=== PATIENT | male | born 1990 | race Two or more races ===

== ENCOUNTER 2018-02-26 16:53 | Emergency (ER) | payer SELFPAY ==
[~2018-02-26] VITALS: Ht 180.3 cm; Wt 95.3 kg
[2018-02-26] MEDS ORDERED: Morphine Sulfate 4mg/ml Inj (IV/IM USE ONLY) IVP ONE (17:30)
[2018-02-26 17:50] LABS: APPEARANCE,URINE CLEAR; BILIRUBIN, URINE NEGATIVE (NEGATIVE); COLOR,URINE PALE YELLOW; GLUCOSE, URINE (UA) NEGATIVE (NEGATIVE); KETONES,URINE NEGATIVE (NEGATIVE); LEUKOCYTE ESTERASE ,URINE NEGATIVE (NEGATIVE); NITRITE,URINE NEGATIVE (NEGATIVE); PH,URINE 7 (4.5-8.0); PROTEIN,URINE NEGATIVE (NEGATIVE); UROBILINOGEN,URINE NORMAL MG/DL (0.0-1.0)
[2018-02-26 17:51] LABS: BASOPHILS % (AUTO) 1.3 % (0.0-2.0); EOSINOPHILS % (AUTO) 3.7 % (0.0-3.0); HEMATOCRIT 43.7 % (42.0-52.0); HEMOGLOBIN 15.5 G/DL (14.2-18.0); LYMPHOCYTES % (AUTO) 34.7 % (20.0-45.0); MEAN CORPUSCULAR VOLUME 87 FL (80-99); MONOCYTES % (AUTO) 7.9 % (1.0-10.0); NEUTROPHILS % (AUTO) 52.5 % (45.0-75.0); PLATELET COUNT 309 K/UL (150-450); RED BLOOD COUNT 5.04 M/UL (4.70-6.10); RED CELL DISTRIBUTION WIDTH 10.7 % (11.6-14.8); WHITE BLOOD COUNT 10.8 K/UL (4.8-10.8)
[2018-02-26 18:10] LABS: ANION GAP 8 mmol/L (5-15); BLOOD UREA NITROGEN 21 mg/dL (7-18); CARBON DIOXIDE 30 MMOL/L (21-32); CHLORIDE 102 MMOL/L (98-107); CREATININE 1.5 MG/DL (0.55-1.30); POTASSIUM 3.6 MMOL/L (3.5-5.1); SODIUM 140 MMOL/L (136-145)
[2018-02-26 18:14] LABS: ALANINE AMINOTRANSFERASE 47 U/L (12-78); ALBUMIN 4.2 G/DL (3.4-5.0); ALKALINE PHOSPHATASE 75 U/L (46-116); ASPARTATE AMINO TRANSFERASE 39 U/L (15-37); BILIRUBIN,TOTAL 0.2 MG/DL (0.2-1.0)
[2018-02-26 18:50] VITALS: BP 132/72
--- NOTE | 2018-02-26 19:29 | Emergency Room Report ---
History of Present Illness General Chief Complaint: Abdominal Pain Source: Patient (Liliam Figueroa) Present Illness HPI 27-year-old male with history of hypertension, hyperlipidemia, alcohol abuse here complaining of one month of diarrhea stating. His diarrhea is very black. patient reports he stopped drinking alcohol when his diarrhea started however he reports he has been drinking alcohol about 3-4 alcoholic beverages a day since the age of 19. He complains of one day of sharp right upper and right lower quadrant abdominal pain, denying nausea or vomiting, fever, chills, urinary symptoms. Denies recent travel or use of any new medication. He has not taken his cholesterol or blood pressure medication in a few months. Denies drug use and tobacco smoke. denies Chest pain, shortness of breath, palpitations, dizziness headache. denies blood in stool (Liliam Figueroa) Allergies: Coded Allergies: No Known Allergies (Unverified , 02/26/18) Patient History Past Medical History: see triage record Past Surgical History: none Pertinent Family History: none Social History: Reports: alcohol use - daily basis x8 years Immunizations: UTD Reviewed Nursing Documentation: PMH: Agreed; PSxH: Agreed (Liliam Figueroa) Nursing Documentation-PMH Past Medical History: No History, Except For (Liliam Figueroa) Review of Systems All Other Systems: negative except mentioned in HPI (Liliam Figueroa) Physical Exam Vital Signs Date Time Temp Pulse Resp B/P (MAP) Pulse Ox O2 Delivery O2 Flow Rate FiO2 02/26/18 17:04 98.1 72 22 132/80 98 Room Air Sp02 EP Interpretation: reviewed, normal General Appearance: alert, GCS 15, non-toxic, moderate distress Head: normocephalic, atraumatic Eyes: bilateral eye normal inspection, bilateral eye PERRL ENT: normal ENT inspection, normal pharynx Neck: normal inspection, full range of motion, supple Respiratory: normal inspection, lungs clear, no rhonchi Cardiovascular #1: normal inspection, regular rate, rhythm, no gallop, no murmur Gastrointestinal: normal bowel sounds, distended - right upper quadrant, guarding - Right upper quadrant, hepatomegaly, other - No Neely[place] sign Rectal: deferred Genitourinary: no CVA tenderness Musculoskeletal: normal inspection, back normal Neurologic: normal inspection, alert, oriented x3, responsive Psychiatric: normal inspection, judgement/insight normal, memory normal Skin: normal inspection, normal color, no rash, warm/dry Lymphatic: normal inspection, no adenopathy (Liliam Figueroa) Medical Decision Making PA Attestation all diagnoses and treatment plans were reviewed and discussed with my supervising physician Dr. Singer (Liliam Figueroa) Diagnostic Impression: Primary Impression: Mesenteric adenitis Additional Impressions: Abdominal pain Alcohol abuse ER Course 27-year-old male with history of hypertension, hyperlipidemia, alcohol abuse here complaining of one month of diarrhea stating. His diarrhea is very black. patient reports he stopped drinking alcohol when his diarrhea started however he reports he has been drinking alcohol about 3-4 alcoholic beverages a day since the age of 19. He complains of one day of sharp right upper and right lower quadrant abdominal pain, denying nausea or vomiting, fever, chills, urinary symptoms. Denies recent travel or use of any new medication. He has not taken his cholesterol or blood pressure medication in a few months. Denies drug use and tobacco smoke. denies Chest pain, shortness of breath, palpitations, dizziness headache. denies blood in stool Ddx considered but are not limited to appendicitis, cholecysitiis, pancratitis, cirrhosis Vital signs: are WNL, pt. is afebrile H&PE are most consistent with mesenteric adenitis chronic diarrhea ORDERS: CBC, CMP, lipase, UA,and drug screen, CT abdomen no contrast, morphine, Zofran, Cipro, Flagyl ED INTERVENTIONS: morphine and Zofran DISCHARGE: At this time pt. is stable for d/c to home. Will provide printed patient care instructions, and any necessary prescriptions. Care plan and follow up instructions have been discussed with the patient prior to discharge. Dr. Trent consult with the patient and reviewed results of CT abdomen per Dr. Trent recommendation patient to follow up with [employer] [facility] for further assessment of chronic diarrhea as well as stool culture. Dr. Trent appendix of 8 mm is nonsignificant of appendicitis since white blood count is within normal limits.he has discharged with Cipro and Flagyl and follow up with [facility] for GI referral AST: 39, BUN21, creatinine 1.5 (Liliam Figueroa) ER Course This patient's evaluation and treatment was discussed in detail. I agree with the treatment plan. (Danilo Singer MD) EKG Diagnostic Results Rhythm: NSR ST Segments: no acute changes (Liliam Figueroa) CT/MRI/US Diagnostic Results CT/MRI/US Diagnostic Results : Imaging Test Ordered: CT abd no cotrast Impression CT ABDOMEN & PELVIS Without Contrast: Evaluation of the colon is limited secondary to poor distention. No definite evidence for bowel related inflammatory changes. The appendix is mildly prominent measuring up to [address] evidence for periappendiceal inflammatory changes to suggest acute appendicitis. Multiple small nodes are seen in the mesentery along the right side of the abdomen. This may be related to mesenteric adenitis. No evidence for hydronephrosis or perinephric stranding. No evidence for renal or ureteral stone. The intra-abdominal organs are grossly unremarkable for a noncontrast CT. No evidence for significant bowel loop dilation to suggest an obstructive process. No free intraperitoneal fluid or free intraperitoneal gas. (Liliam Figueroa) Last Vital Signs Date Time Temp Pulse Resp B/P (MAP) Pulse Ox O2 Delivery O2 Flow Rate FiO2 02/26/18 18:50 99.0 72 18 132/72 98 Room Air (Liliam Figueroa) Disposition: HOME, SELF-CARE Condition: Stable Scripts Metronidazole* (FLAGYL*) 500 Mg Tablet 500 MG ORAL EVERY 12 HOURS for 14 Days, #28 TAB Prov: Liliam Figueroa 02/26/18 Ciprofloxacin* (CIPRO*) 500 Mg Tablet 500 MG PO BID for 14 Days, #28 TAB Prov: Liliam Figueroa 02/26/18 Referrals: NOT CHOSEN IPA/,REFERRING (PCP) Patient Instructions: Abdominal Pain, Adult, Alcohol Use Disorder, Chronic Diarrhea, Mesenteric Adenitis, Pediatric Additional Instructions: follow with primary care provider to be referred to gastroenterology due to chronic diarrhea, avoid drinking alcohol, avoid taking Tylenol and anything with acetaminophen. As you will damage her liver warm, elevated BUN/creatinine and creatinine are indicative of renal injury try to take low-dose of ibuprofen only. take antibiotic as directed, talked to Dr. Cruz who is a general surgeon over the phone and due to normal white blood count and 8 mm appendix which is not suggesting of appendicitis and normal blood work patient can be discharged with antibiotics Liliam Figueroa Feb 26, 2018 19:28 Danilo Singer MD Feb 28, 2018 04:58
[2018-02-26] MEDS ORDERED: METRONIDAZOLE500 MG ORAL (20:33)
[2018-02-26] MEDS ORDERED: CIPRO500 MG PO (20:33)
[2018-02-26 20:49] VITALS: BP 127/70
[2018-02-26 21:16] VITALS: BP 130/70
--- NOTE | 2018-02-26 23:15 | Consultation ---
DATE OF CONSULTATION: 02/26/2018 CONSULTING PHYSICIAN: Joaquin Trent M.D. REFERRING PHYSICIAN: Dr. Singer. REASON FOR CONSULTATION: Abdominal pain. HISTORY OF PRESENT ILLNESS: This is a 27-year-old male who presented to the emergency room complaining of abdominal pain. He stated that for about a month, he has been having diarrhea and abdominal pain off and on, but this morning he started having pain on the right side of the abdomen, and he stated the pain was getting severe, so he presented to the emergency room. He denies any nausea or vomiting. He denies any fever. He denies any dysuria or frequency. His bowel movement is watery. No mucus or blood. PAST MEDICAL HISTORY: He denies allergies, diabetes, cardiac and renal diseases. He claimed that he had asthma at childhood. He has a history of hypertension. SURGERIES: None. MEDICATIONS: None. SOCIAL HISTORY: The patient is a 27-year-old male who is single and father of one child. He works for [employer]. He claims that he quit smoking and drinking. REVIEW OF SYSTEMS: Noncontributory. PHYSICAL EXAMINATION: GENERAL: The patient appeared to be a well-developed, well-nourished 27-year-old male, lying on the gurney, in no acute distress. HEENT: Head is normocephalic and atraumatic. Eyes, pupils are equal, round, and reactive to light. Mouth is clear. NECK: There is no palpable thyromegaly or adenopathy. CHEST: Clear to auscultation and percussion. HEART: There is no gallop or murmur. S1 and S2 are within normal limits. ABDOMEN: Soft and flat with mild tenderness at right side of the abdomen, probably more severe on the right lower quadrant. There is no rebound tenderness. There is no guarding. Bowel sounds are present. There is no palpable organomegaly. GENITAL: Deferred. EXTREMITIES: Within normal limits. LABORATORY DATA: CBC has shown a WBC of 10,800 with normal differential. Chemistry is normal. CT scan of the abdomen has shown the appendix to be 8 mm without any stranding, but the patient had mesenteric adenitis. ASSESSMENT: Abdominal pain, most probably mesenteric adenitis. PLAN: At this time, he does not have acute appendicitis and the main concern is diarrhea. He requires to follow up with the GI especially as an outpatient. Joaquin Trent M.D. DR: SHANTANU JOB#: [id number] CC:
--- NOTE | 2018-02-27 10:17 | Diagnostic Imaging Report ---
Indication: Abdominal pain Technique: Spiral acquisitions obtained through the abdomen and pelvis. No oral contrast utilized, per emergency room physician request No IV contrast utilized, per referring physician request.. Multiplanar reconstructions were generated. Total dose length product 848.03 mGycm. CTDIvol(s) 14.36 mGy. Dose reduction achieved using automated exposure control Comparison: None Findings: The appendix is normal. No evidence of diverticulosis or diverticulitis. No small bowel distention. No free or loculated intraperitoneal gas or fluid. Lack of IV contrast limits assessment of the solid organs. The liver, gallbladder, bile ducts, pancreas, spleen, adrenals, kidneys are unremarkable. No renal or ureteral calculi, hydronephrosis, or hydroureter. No retroperitoneal or mesenteric mass or adenopathy. No pelvic mass or adenopathy. The included lung bases are clear except for minimal atelectasis or scarring in the lingula. The bones are unremarkable. Impression: Negative This essentially agrees with the preliminary interpretation provided overnight by [facility] teleradiology service. The CT scanner at [facility] is accredited by the [employer] and the scans are performed using protocols designed to limit radiation exposure to as low as reasonably achievable to attain images of sufficient resolution adequate for diagnostic evaluation.
== END 2018-02-26 21:16 | disposition home or self-care (01) ==
LOC: EMR 17:00 → CANBEDREQ 20:48 → EMR 21:16
DX: I88.0 Nonspecific mesenteric lymphadenitis (principal); R10.11 Right upper quadrant pain; F10.10 Alcohol abuse, uncomplicated; R19.7 Diarrhea, unspecified; I10 Essential (primary) hypertension; E78.5 Hyperlipidemia, unspecified; Z87.891 Personal history of nicotine dependence
CPT/HCPCS: 36415; 74176; 80053; 80307; 81003; 83690; 85025; 93005; 96374; 96375; 99284; J2270; J2405